=== PATIENT | male | born 2000 | race Caucasian/White ===

== ENCOUNTER 2022-11-12 15:36 | Emergency (ER) | payer BC ==
[~2022-11-12] VITALS: Ht 182.9 cm; Wt 104.3 kg
[2022-11-12 15:54] VITALS: BP 142/87; TEMP 98.4; O2SAT 100
== END 2022-11-12 17:37 | disposition left against medical advice (07) ==
LOC: ER 15:49
DX: L98.8 Other specified disorders of the skin and subcutaneous tissue (principal); I10 Essential (primary) hypertension; Z60.2 Problems related to living alone